=== PATIENT | female | born 1975 | race American Indian/Alaskan Native ===

== ENCOUNTER 2018-01-05 08:37 | Outpatient (CLI) | payer OTHER ==
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
== END 2018-01-05 08:38 | disposition home or self-care (01) ==
LOC: SPVIMAG 08:37
PROVIDERS: ATTEND Physical Medicine & Rehabilitation
DX: M47.892 Other spondylosis, cervical region (principal); M54.5 Low back pain; Z87.828 Personal history of other (healed) physical injury and trauma
CPT/HCPCS: 72050; 72100

== ENCOUNTER 2019-02-28 09:42 | Emergency (ER) | payer OTHER ==
[2019-02-28 09:49] VITALS: BP 137/96
--- NOTE | 2019-02-28 10:11 | Emergency Department Report ---
Blank Doc - Documentation Documentation: A physician and/or other qualified medical personnel has recommended that the patient receive further examination and/or treatment beyond a Medical Screening Exam, of which she did not receive. The risks and benefits were explained. The patient was informed of their right to emergency care. Patient left before final disposition of their medical condition. This note has been generated by me, Dr. Marty Hogan III, MD, the [employer] for the emergency department. I have not seen this patient personally.
== END 2019-02-28 09:54 | disposition left against medical advice (07) ==
LOC: ED 09:42
DX: R22.1 Localized swelling, mass and lump, neck (principal); Z53.21 Procedure and treatment not carried out due to patient leaving prior to being seen by health care provider